=== PATIENT | female | born 1990 | race Asian ===

== ENCOUNTER 2017-08-22 20:51 | Emergency (ER) | payer OTHER ==
[~2017-08-22] VITALS: Ht 167.6 cm; Wt 72.8 kg
[2017-08-22 20:56] VITALS: TEMP 36.7; Ht 167.6 cm; Wt 72.8 kg
[2017-08-22] MEDS ORDERED: DOXYCYCLINE HYCLATE 100 MG CAP PO STA (21:28)
--- NOTE | 2017-08-22 21:43 | EMERGENCY ROOM VISIT NOTE ---
ED Visit Note First contact with patient: 21:04 CHIEF COMPLAINT: Tick bite HISTORY OF PRESENT ILLNESS: This patient is a 27-year-old female that presents to the emergency department with complaints of a tick bite to her right lower back that she noticed in the shower tonight. The patient thinks that she got the tick 2 days ago when she was hiking. She pulled the tick off herself. It was not engorged. REVIEW OF SYSTEMS: Head: No headache, injury or neck pain. A Neck: No pain , stiffness, or swelling. Neurological: No headache, new changes in mental status, vertigo, focal weakness, numbness. Gastrointestinal: No abdominal pain , blood in stools, diarrhea, loss of appetite, nausea, or vomiting. General: No fever or chills, fatigue, loss of appetite, or significant recent weight gain or loss. PMH: The patient is healthy; there is no significant medical or surgical history. SOCIAL HISTORY: The patient is a [employer] student PHYSICAL EXAM: Vital Signs: Reviewed Nurse's notes. There is a small zone of inflammation and eccymosis on the right lower back. The skin is otherwise clear. NEUROLOGICAL: Alert and cooperative. Sensory and motor functions grossly intact. COURSE: The patient was seen and examined. She was given 1 dose of doxycycline 200 mg by mouth. Discharge instructions were reviewed, and she was discharged in good condition DIAGNOSIS: Tick bite DISCHARGE INSTRUCTIONS & TREATMENT: Please clean the area daily with soap and water. Keep Neosporin on the area and a Band-Aid for the first 3 days. Please watch for signs of Lyme disease such as a bull's-eye rash, fever, severe joint pain or headache. Please follow-up with [facility] within one week for a recheck This chart was completed in part utilizing [employer] Voice Recognition software. Attempts were made to minimize the grammatical errors, random word insertions, pronoun errors and incomplete sentences. Any formal questions or concerns about the content, text or information contained within the body of this dictation should be directly addressed to the provider for clarification.
[2017-08-22 21:51] VITALS: BP 122/71; PULSE 72; O2SAT 96
== END 2017-08-22 21:55 | disposition home or self-care (01) ==
LOC: C.EDB 20:53 → C.EDD 21:55
DX: S30.860A Insect bite (nonvenomous) of lower back and pelvis, initial encounter (principal); W57.XXXA Bitten or stung by nonvenomous insect and other nonvenomous arthropods, initial encounter